=== PATIENT | male | born 1970 | race Caucasian/White ===

== ENCOUNTER 2017-12-25 03:28 | Emergency (ER) | payer OTHER ==
[~2017-12-25] VITALS: Ht 172.7 cm; Wt 77.9 kg
[~2017-12-25 03:28] MED LIST: CPRUNK
[2017-12-25 03:32] VITALS: TEMP 36.5; Ht 172.7 cm; Wt 77.9 kg
--- NOTE | 2017-12-25 04:02 | EMERGENCY ROOM VISIT NOTE ---
ED Visit Note First contact with patient: 03:44 CHIEF COMPLAINT: Right second finger laceration HISTORY OF PRESENT ILLNESS: This 47-year-old male patient presents to the emergency department ambulatory complaining of a laceration to the right second finger. The patient states that 8-10 hours ago, he was shucking oysters and the knife folded on him, cutting his right finger. He initially cleaned out the laceration and placed a dressing on it. He states that he became concerned because he had increased pain overnight. He rates his current discomfort a 4/10 , worse with movement. Tetanus is up-to-date. He denies numbness or weakness. REVIEW OF SYSTEMS: A 6 system review of systems was completed with positives and pertinent negatives listed in the HPI. ALLERGIES: NKDA MEDICATIONS: No chronic medications PMH: GERD SOCIAL HISTORY: Patient lives locally with family. Occasional smoker. PHYSICAL EXAM: Vital Signs: Reviewed Nurse's notes, vital signs stable. GENERAL : This is a 47-year-old male, in no acute distress, well-developed, well- nourished. SKIN: There is a 2 cm long laceration to the distal right second finger, just lateral to the fingernail. It is superficial and the edges only mildly gape apart with traction, but lay well without traction. There is no foreign material in the wound and it looks clean. There is no active bleeding. No deep structures such as tendons or nerves are seen in the base of the wound. Extension and flexion of the finger is full and strong. Sensation to pain and light touch is intact. EMERGENCY DEPARTMENT COURSE: I examined the patient. Verbal consent was obtained to perform the procedure. The laceration was cleaned with betadine and sterile saline and there was no bleeding. The edges of the laceration were approximated and secured with 3 layers of Dermabond glue with good wound approximation. The patient tolerated the procedure well. The patient was discharged home in stable condition. Blood pressure screening: Patient was found to have normal blood pressure on screening and does not require follow-up. DIAGNOSIS: Finger laceration Current/Historical Medications Miscellaneous Medications Ciprofloxacin (Cipro Unknown Dose) Allergies Coded Allergies: No Known Allergies (Unverified , 07/06/12) Vital Signs Date Time Temp Pulse Resp B/P (MAP) Pulse Ox O2 Delivery O2 Flow Rate FiO2 12/25/17 04:11 76 16 128/71 98 12/25/17 03:32 36.5 54 18 138/77 98 Room Air Departure Information Impression Primary Impression: Laceration of finger Dispostion Home / Self-Care Condition GOOD Referrals No Doctor, Assigned (PCP) Patient Instructions My [facility] Additional Instructions Allow the skin glue to fall off on its own in the next 2-3 days. Do not pick at the glue. For pain control, you can use the following [id number] medicines (if >12 yo): - Regular strength (325mg/tab) Tylenol (acetaminophen) 2 tabs every 4-6 hours as needed. Do not exceed 12 tablets in a 24 hour period. Avoid taking more than 4 grams (4000 mg) of Tylenol per day. This includes any other sources of acetaminophen you may take on a regular basis. - Regular strength (200 mg/tab) Advil (ibuprofen) 1-2 tabs every 4-6 hours as needed. Do not exceed a dose of 3200 mg per day. Return here or see her primary care provider for any signs of infection such as increasing redness, increasing swelling, fell drainage or any other new/ concerning symptoms. Problem Qualifiers Primary Impression: Laceration of finger Encounter type: initial encounter Finger: index finger Damage to nail status: without damage Foreign body presence: without foreign body Laterality: right Qualified Codes: S61.210A - Laceration without foreign body of right index finger without damage to nail, initial encounter
[2017-12-25 04:11] VITALS: BP 128/71; PULSE 76; O2SAT 98
== END 2017-12-25 04:12 | disposition home or self-care (01) ==
LOC: C.EDB 03:29 → C.EDA 04:12
DX: S61.210A Laceration without foreign body of right index finger without damage to nail, initial encounter (principal); W26.0XXA Contact with knife, initial encounter; Y92.9 Unspecified place or not applicable; Y93.G1 Activity, food preparation and clean up; K21.9 Gastro-esophageal reflux disease without esophagitis; F17.210 Nicotine dependence, cigarettes, uncomplicated